=== PATIENT | male | born 1955 | race Caucasian/White ===

== ENCOUNTER 2023-06-01 11:12 | Emergency (ER) | payer OTHER ==
[~2023-06-01] VITALS: Ht 172.7 cm; Wt 88.5 kg
[~2023-06-01 11:12] MED LIST: DARVOCET N 1001 TAB PO; DAYPRO600 M1 PO; ROBAXIN750 MG PO
[2023-06-01] MEDS ORDERED: CEPHALEXIN500 M1 PO (11:36)
== END 2023-06-01 13:25 | disposition home or self-care (01) ==
LOC: ED 11:12
DX: S51.012A Laceration without foreign body of left elbow, initial encounter (principal); Z90.49 Acquired absence of other specified parts of digestive tract; W01.198A Fall on same level from slipping, tripping and stumbling with subsequent striking against other object, initial encounter; Y93.89 Activity, other specified; Y92.89 Other specified places as the place of occurrence of the external cause; Y99.8 Other external cause status

== ENCOUNTER 2025-04-05 13:32 | Emergency (ER) | payer OTHER ==
[~2025-04-05] VITALS: Ht 175.2 cm; Wt 88.5 kg
[~2025-04-05 13:32] MED LIST changes: +CEPHALEXIN500 M1 PO
[2025-04-05] MEDS ORDERED: SODIUM CHLORIDE 0.9% 1,000 ML IV ONE (13:45)
[2025-04-05] MEDS ORDERED: Ondansetron Hydrochloride 4 MG/2 ML VIAL IV ONE (13:45)
[2025-04-05] MEDS ORDERED: HYDROmorphONE Hydrochloride 0.5 MG/0.5 ML SYRINGE IV ONE ×3 (13:45→18:20)
[2025-04-05 14:12] LABS: BASO # 0.1 10*3/uL (0.0-0.1); BASO % 0.5 % (0.0-1.0); EOS # 0.2 10*3/uL (0.0-0.4); EOS % 2.0 % (1.0-4.0); MEAN CELL VOLUME 91.3 fl (80.0-94.0); MEAN CORPUSCULAR HGB 29.7 pg (27.0-31.0); MEAN PLATELET VOLUME 8.6 fl (9.6-12.3); MONO # 0.6 10*3/uL (0.1-1.0); MONO % 5.9 % (3.0-9.0); NEUT # 6.6 10*3/uL (2.3-7.9); NEUT % 64.5 % (47.0-73.0); NUCLEATED RED BLOOD CELL 0.0 % (0.0-0.0); NUCLEATED RED BLOOD CELL 0.0 10*3/uL (0.0-0.0); PLATELET COUNT AUTOMATED 260 10*3/uL (130-400); RED CELL DISTRI WIDTH 12.1 % (0-14.5)
[2025-04-05 14:35] LABS: BUN 17 mg/dl (9-23)
[2025-04-05] MEDS ORDERED: Tdap Vaccine 0.5 ML SYR (Adult Vaccine) IM ONE (15:15)
[2025-04-05] MEDS ORDERED: ceFAZolin sodium/sodium chlor 10 ML IV ONE (15:20)
== END 2025-04-05 18:18 | disposition short-term general hospital (02) ==
LOC: ED 13:32
PROVIDERS: Nurse Practitioner Family
DX: S42.402A Unspecified fracture of lower end of left humerus, initial encounter for closed fracture (principal); Z90.49 Acquired absence of other specified parts of digestive tract; W17.89XA Other fall from one level to another, initial encounter; Y93.89 Activity, other specified; Y92.89 Other specified places as the place of occurrence of the external cause; Y99.0 Civilian activity done for income or pay